=== PATIENT | male | born 1960 | race Two or more races ===

== ENCOUNTER 2020-02-26 11:03 | Observation (INO) | payer BC ==
[~2020-02-26] VITALS: Ht 182.9 cm; Wt 100.0 kg
[2020-02-26] MEDS ORDERED: SODIUM CHLORIDE 0.9% 1,000 ML IV SCH (11:21)
[2020-02-26] MEDS ORDERED: PLEASE ENTER HEIGHT AND WEIGHT MC SCH (11:30)
[2020-02-26] MEDS ORDERED: Fish oil PO (11:35)
[2020-02-26] MEDS ORDERED: METO-93 PO (11:35)
[2020-02-26 11:36] VITALS: BP 140/85
[2020-02-26 12:10] LABS: BASOPHILS # (AUTO) 0.03 x10^3/uL (0-0.1); BASOPHILS % (AUTO) 1 % (0-1); EOSINOPHILS # (AUTO) 0.14 x10^3/uL (0-0.4); EOSINOPHILS % (AUTO) 3 % (1-7); LYMPHOCYTES # (AUTO) 1.58 x10^3/uL (1-3.4); LYMPHOCYTES % (AUTO) 28 % (22-44); MD NO; MEAN CORPUSCULAR HEMOGLOBIN 31.1 pg (27.5-34.5); MEAN CORPUSCULAR VOLUME 91.5 fL (81-97); MEAN PLATELET VOLUME 8.8 fL (7.4-10.4); MONOCYTES # (AUTO) 0.32 x10^3/uL (0.2-0.8); MONOCYTES % (AUTO) 6 % (2-9); NEUTROPHILS # (AUTO) 3.57 x10^3/uL (1.8-6.8); NEUTROPHILS % (AUTO) 63 % (42-75); PLATELET COUNT 184 x10^3/uL (130-400); RED BLOOD COUNT 4.82 x10^6/uL (4.38-5.82); RED CELL DISTRIBUTION WIDTH 11.4 % (9.4-14.8)
[2020-02-26 12:19] LABS: ANION GAP 5 mmol/L (5-15); CALCIUM 8.7 mg/dL (8.5-10.1); CHLORIDE 110 mmol/L (98-107); CREATININE 1.05 mg/dL (0.7-1.3)
[2020-02-26] MEDS ORDERED: FENTANYL PF 100 MCG/2ML ONE (14:26)
[2020-02-26] MEDS ORDERED: MIDAZOLAM 1 MG/ML, 2ML ONE (14:26)
[2020-02-26] MEDS ORDERED: LIDOCAINE 1%, 20ML ONE (14:26)
[2020-02-26] MEDS ORDERED: ISOPROTERENOL 0.2MG/ML, 5ML ONE (14:26)
== END 2020-02-26 21:20 | disposition home or self-care (01) ==
LOC: CACL 11:03 → 5SO 16:06 → CACL 16:06 → 5SO 16:28
PROVIDERS: ADMIT Internal Medicine Clinical Cardiac Electrophysiology; ATTEND Internal Medicine Clinical Cardiac Electrophysiology
DX: R55 Syncope and collapse (principal); R00.2 Palpitations; R00.0 Tachycardia, unspecified; Z79.899 Other long term (current) drug therapy
CPT/HCPCS: 36415; 71046; 80048; 85025; 93613; 93620; 93621; 93623; C1730; C1894; C2630; G0378; J3490; J2250; J3010

== ENCOUNTER → 2020-04-22 | Outpatient (CLI) | payer BC ==
[~2020-04-22] MED LIST: Fish oil PO; METO-93 PO
== END | disposition home or self-care (01) ==
LOC: CVU 15:05
PROVIDERS: ATTEND Internal Medicine Cardiovascular Disease
DX: I35.8 Other nonrheumatic aortic valve disorders (principal); R55 Syncope and collapse
CPT/HCPCS: 93306

== ENCOUNTER 2020-07-11 10:59 | Observation (INO) | payer BC ==
[~2020-07-11] VITALS: Ht 180.3 cm; Wt 105.6 kg
[~2020-07-11 10:59] MED LIST changes: +ACETAMINOPHEN 325 MG TABLET PO PRN; +EPHEDRINE 50 MG/ML, 1ML IVPush PRN; +FENTANYL PF 100 MCG/2ML IV PRN; +HYDROmorphone 1 MG/ML, 1ML INJ IVPush PRN; +LABETALOL 5MG/ML, 20ML IV PRN; +ONDANSETRON 2MG/ML, 2ML IVPush PRN; +OXYcodone 5 MG/5 ML ORAL.SOL UDC PO PRN; +PLEASE ENTER HEIGHT AND WEIGHT MC SCH; +PROMETHAZINE 25 MG/ML, 1ML IVPush PRN; +hydrALAzine 20 MG/ML, 1ML IV PRN
[2020-07-11] MEDS ORDERED: CEFAZOLIN PMX 1GM/50ML 50 ML IVPB ONE (11:30)
[2020-07-11] MEDS: SODIUM CHLORIDE 0.9% 1,000 ML IV SCH ×2 (11:30→19:30)
[2020-07-11] MEDS ORDERED: MULT-316 PO (11:37)
[2020-07-11 11:40] VITALS: BP 140/79
[2020-07-11 11:52] LABS: BASOPHILS % (AUTO) 1 % (0-1); EOSINOPHILS % (AUTO) 3 % (1-7); LYMPHOCYTES % (AUTO) 31 % (22-44); MEAN CORPUSCULAR HEMOGLOBIN 31.3 pg (27.5-34.5); MEAN CORPUSCULAR HGB CONC 34.1 g/dL (33.2-36.2); MEAN PLATELET VOLUME 8.6 fL (7.4-10.4); MONOCYTES % (AUTO) 7 % (2-9); NEUTROPHILS % (AUTO) 59 % (42-75); PLATELET COUNT 181 x10^3/uL (130-400); RED BLOOD COUNT 4.53 x10^6/uL (4.38-5.82); RED CELL DISTRIBUTION WIDTH 11.9 % (9.4-14.8)
[2020-07-11 11:56] LABS: MD NO
[2020-07-11 11:57] LABS: INTERNATIONAL NORMALIZED RATIO 1.13 (0.93-1.1)
[2020-07-11 11:58] LABS: ANION GAP 6 mmol/L (5-15); CALCIUM 8.9 mg/dL (8.5-10.1); CHLORIDE 111 mmol/L (98-107)
[2020-07-11 12:01] LABS: CREATININE 1.02 mg/dL (0.7-1.3)
[2020-07-11] MEDS ORDERED: MIDAZOLAM 1 MG/ML, 2ML ONE (12:07)
[2020-07-11] MEDS ORDERED: FENTANYL PF 250 MCG/5ML ONE (12:08)
[2020-07-11] MEDS ORDERED: LIDOCAINE 1%, 20ML ONE (13:28)
[2020-07-11] MEDS ORDERED: CEFAZOLIN 1,000 MG ONE ×2 (13:28→13:55)
[2020-07-11] MEDS ORDERED: DEXAMETHASONE 4 MG/ML, 5ML ONE ×2 (13:31→13:56)
[2020-07-11] MEDS ORDERED: KETOROLAC 30 MG/1 ML ONE (13:31)
[2020-07-11] MEDS ORDERED: SUCCINYLCHOLINE 20 MG/ML, 10ML ONE (13:55)
[2020-07-11] MEDS ORDERED: ONDANSETRON 2MG/ML, 2ML ONE (13:55)
[2020-07-11] MEDS ORDERED: PROPOFOL 10 MG/ML, 20ML ONE (13:55)
[2020-07-11] MEDS ORDERED: HOLD MEDICATION MC PRN (14:30)
[2020-07-11 16:10] VITALS: BP 132/79
[2020-07-11] MEDS ORDERED: METO25TA35 PO (18:42)
[2020-07-11 20:01] VITALS: BP 102/62
[2020-07-11] MEDS: METOPROLOL TARTRATE 25 MG TAB PO SCH (23:21)
[2020-07-11] MEDS: SODIUM CHLORIDE FLUSH 10ML SYR IVF SCH (23:21)
[2020-07-12 00:48] VITALS: BP 118/68
[2020-07-12] MEDS: SODIUM CHLORIDE 0.9% 1,000 ML IV SCH (02:34)
[2020-07-12 05:47] VITALS: BP 125/68
[2020-07-12 06:36] VITALS: BP 132/79
[2020-07-12] MEDS: SODIUM CHLORIDE FLUSH 10ML SYR IVF SCH (08:48)
[2020-07-12] MEDS: METOPROLOL TARTRATE 25 MG TAB PO SCH (08:48)
[2020-07-12] MEDS ORDERED: METOPROLOL SUCCINATE 50 MG TAB.ER.24H PO SCH (09:00)
[2020-07-12 11:47] VITALS: BP 120/68
== END 2020-07-12 14:24 | disposition home or self-care (01) ==
LOC: CACL 10:59 → ORIP 14:28 → 5SO 16:00
PROVIDERS: ADMIT Internal Medicine Clinical Cardiac Electrophysiology; ATTEND Internal Medicine Clinical Cardiac Electrophysiology
DX: I47.2 Ventricular tachycardia (principal); Z20.828 Contact with and (suspected) exposure to other viral communicable diseases; I10 Essential (primary) hypertension; Z79.899 Other long term (current) drug therapy
CPT/HCPCS: 33249; 33286; 36415; 71045; 71046; 80048; 85025; 85610; 87635; 93005; C1721; C1779; C1892; C1895; G0378; J0330; J0690; J1100; J1885; J2250; J2405; J2704; J3010; J3490